=== PATIENT | male | born 1960 | race Caucasian/White ===

== ENCOUNTER 2016-03-19 01:39 | Emergency (ER) | payer SELFPAY ==
[2016-03-19] MEDS ORDERED: Ondansetron HCl/PF 4 MG/2 ML Vial ONE ×2 (01:55→02:13)
[2016-03-19] MEDS ORDERED: Sodium Chloride 0.9% 1,000 ML ONE ×2 (01:55→02:42)
[2016-03-19] MEDS ORDERED: Mag-Al Plus 1200 MG/1200 MG/120 MG/30 ML UDCUP ONE (02:03)
[2016-03-19] MEDS ORDERED: Lidocaine Viscous Sol 2% 15 ml UD Cup ONE (02:03)
[2016-03-19 02:06] LABS: Band 7 % (5-11); Hematocrit 45.3 % (42.0-52.0); Mean Platelet Volume 7.2 fL (7.4-10.4); Neutrophil 82 % (42-75); Red Blood Cell (RBC) Count 5.41 mill/uL (4.70-6.10); White Blood Cell (WBC) Count 21.9 thou/uL (4.8-10.8)
[2016-03-19 02:21] LABS: ALT (SGPT) 217 U/L (0-55); AST (SGOT) 209 U/L (5-34); Alkaline Phosphatase 301 U/L (40-150); Anion Gap 20 mmol/L (10-20); BUN (Urea Nitrogen) 13 mg/dL (8.4-25.7); Bilirubin, Total 1.8 mg/dL (0.2-1.2); Calc. Creatinine Clearance 0 mL/min (70-130); Calcium 9.3 mg/dL (7.8-10.44); Carbon Dioxide 19 mmol/L (22-29); Chloride 97 mmol/L (98-107); Estimated GFR-MDRD 70; Globulin 4.4 g/dL (2.4-3.5); Lipase 25 U/L (8-78); Protein, Total 7.9 g/dL (6.0-8.3)
[2016-03-19 02:24] LABS: Troponin I Less than 0.010 ng/mL (< 0.028)
[2016-03-19 02:26] LABS: pH (venous) 7.56 (7.34-7.37)
[2016-03-19 02:27] LABS: Base Excess 0.5 mEq/L (0 (+/- 2.5))
[2016-03-19 02:49] LABS: Lactic Acid - Sepsis 4.6 mmol/L (0.5-2.2)
[2016-03-19 03:00] LABS: Magnesium 1.7 mg/dL (1.6-2.6)
[2016-03-19 03:11] LABS: Phosphorus 1.1 mg/dL (2.3-4.7)
[2016-03-19] MEDS ORDERED: cefTRIAXone\\ROCEPHIN 1 GM VIAL ONE (03:16)
[2016-03-19] MEDS ORDERED: Sodium Chloride 0.9% 0 ML ONE (03:16)
[2016-03-19] MEDS ORDERED: Sodium Chloride 0.9% 100 ML ONE (03:16)
[2016-03-19] MEDS ORDERED: NS 0.9% w/ 20 MEQ KCL 1,000 ML ONE (03:38)
[2016-03-19] MEDS ORDERED: metroNIDAZOLE 500 MG/100 ML BAG ONE (04:13)
--- NOTE | 2016-03-19 04:32 | ERRECORD ---
[facility] EMERGENCY RECORD HPI ABDOMINAL PAIN (01:52 ALIM) CHIEF COMPLAINT: Patient presents for evaluation of abdominal pain. HISTORIAN: History provided by patient, 55 y/o male with no significant medical history, last seeing a doctor in the early when leaving the [employer], presenting with 5 hours of epigastric area, with n/v x 3. No fever, diarrhea, or constipation. No other recent illnesses. Last BM yesterday, normal. LOCATION MALE: Symptoms are localized, most severe in the epigastrium, no radiation. QUALITY: Pain is dull in nature. SEVERITY: Maximum severity of symptoms moderate, Currently symptoms are moderate. TIME COURSE: Gradual onset of symptoms, 6 hours. ASSOCIATED WITH: No associated constipation, No associated diarrhea, No associated fever, Associated with nausea, Associated with vomiting. RELIEVED BY: Patient's condition relieved by nothing. EXACERBATED BY: Patient's condition exacerbated by nothing. ROS (01:56 ALIM) CONSTITUTIONAL: Negative constitutional review of systems, Historian denies chills, denies fatigue, denies fever. EYES: Negative eye review of systems, Historian denies vision changes. ENT: Negative ears, nose, throat review of systems, Historian denies rhinorrhea, denies sore throat. CARDIOVASCULAR: Negative cardiovascular review of systems, Historian denies chest pain, denies palpitations. RESPIRATORY: Historian denies cough, denies shortness of breath, denies wheezing. GI: Historian reports abdominal pain, denies constipation, denies diarrhea, reports nausea, reports vomiting. GENITOURINARY MALE: Negative genitourinary review of systems, Historian denies dysuria. MUSCULOSKELETAL: Negative musculoskeletal review of systems, Historian denies injury. SKIN: Negative skin review of systems, Historian denies rash, denies skin changes, denies skin lesions. NEUROLOGIC: Negative neurologic review of systems, Historian denies dizziness, denies headache. PSYCHIATRIC: Negative psychiatric review of systems, Historian denies alcohol abuse, denies drug abuse. NOTES: All systems reviewed, negative except as described above. PAST MEDICAL HISTORY MEDICAL HISTORY: Flu vaccine not up to date, Tetanus not up to date, Past medical history includes gastrointestinal disease, gastroesophageal reflux disease. (01:45 KASA) &a-1R&a+25V*p+0X*[id number]*c202B*c15G*c2P*p-0X&a-25V&a+1R Name: Felix Maradiaga JR : 1960 M55 MedRec: [id number] AcctNum: [id number] Prepared: Balbina Mar 19, 2016 21:34 by Interface Page 1 of 4 pMD [facility] EMERGENCY RECORD MALE SURGICAL HISTORY: Surgical history of appendectomy, Notes: as a child, Surgical history of tonsillectomy, Notes: as a child. (01:45 KASA) PSYCHIATRIC HISTORY: No previous psychiatric history. (01:45 KASA) SOCIAL HISTORY: Patient drinks socially, rarely, Patient denies drug use, Patient currently uses tobacco, chews tobacco, daily, Patient has smoked for 30 years, Lives at home, alone, Patient has pets. (01:45 KASA) NOTES: Nursing records reviewed, Agree with nursing records, Medication list reviewed, I have reviewed and agree with nursing PMH, PSH, social history, and FH. (03:16 ALI) KNOWN ALLERGIES No Known Drug Allergies CURRENT MEDICATIONS (01:43 KASA) None VITAL SIGNS VITAL SIGNS: BP: 136/73, Pulse: 107, Resp: 22, Pain: 7, O2 sat: 100 on Room Air, Time: 03/19/2016 01:40. (01:40 KASA) Temp: 98.3 (Oral), Time: 03/19/2016 01:43. (01:43 KASA) BP: 138/69, Pulse: 101, Resp: 22, Pain: 3, O2 sat: 100, Time: 03/19/2016 02:30. (02:30 [facility]) BP: 133/73, Pulse: 107, Resp: 24, Temp: 99.8 (Oral), Pain: 3 (Intermittent), O2 sat: 96 on Room Air, Time: 03/19/2016 03:30. (03:30 KASA) BP: 147/85, Pulse: 105, Resp: 25, O2 sat: 97 on Room Air, Time: 03/19/2016 03:00. (03:00 KASA) BP: 125/76, Pulse: 108, Resp: 17, Pain: 3 (Intermittent), O2 sat: 97 on Room Air, Time: 03/19/2016 04:00. (04:00 KASA) PHYSICAL EXAM (01:57 ALIM) CONSTITUTIONAL: Vital Signs Reviewed, Patient afebrile, Pulse, tachycardic, Blood pressure normal, Respiratory rate normal, Patient appears non toxic, Patient appears, in moderate pain distress, Patient alert and oriented to person, place and time, Nursing notes reviewed. HEAD: Head exam normal, Head exam included findings of head atraumatic, normocephalic. EYES: Eye exam normal, Eye exam included findings of eyelids normal to inspection, Extraocular muscles intact. ENT: ENT exam normal, Ear exam normal, Nose exam normal. NECK: Neck exam normal, Neck exam included findings of normal range of motion, Trachea midline. RESPIRATORY CHEST: Respiratory and chest exam normal, Respiratory exam included findings of, no egophony, Breath sounds clear, No wheezing. CARDIOVASCULAR: Cardiovascular exam included findings &a-1R&a+25V*p+0X*z2508H*c202B*c15G*c2P*p-0X&a-25V&a+1R Name: Felix Maradiaga JR : 1960 M55 MedRec: [id number] AcctNum: [id number] Prepared: Balbina Mar 19, 2016 21:34 by Interface Page 2 of 4 pMD [facility] EMERGENCY RECORD of, rate tachycardic, Heart sounds normal. ABDOMEN MALE: Abdominal exam included findings of abdomen tender, periumbilical. BACK: Back exam normal, Back exam included findings of normal inspection, range of motion normal. UPPER EXTREMITY: Upper extremity exam normal, Upper extremity exam included findings of inspection normal, Range of motion normal. LOWER EXTREMITY: Lower extremity exam normal, Lower extremity exam included findings of inspection normal, Range of motion normal. NEURO: Neuro exam normal, [place] coma scale 15, Neuro exam findings include patient oriented to person, place and time, Speech normal. SKIN: Skin exam normal, Skin exam included findings of skin warm, dry, and normal in color. PSYCHIATRIC: Psychiatric exam normal, Psychiatric exam included findings of patient oriented to person place and time, Normal affect. EKG INTERPRETATION (01:56 ALIM) 12 LEAD EKG INTERPRETATION: 12 lead EKG interpreted by Emergency Department Physician at time of study, 12 lead EKG shows normal sinus rhythm, Conduction normal, ST segments normal, T waves normal, [place] normal, Other findings include:, prolonged QTc. MEDICATION ADMINISTRATION SUMMARY Drug Name: Flagyl (as HCl), Dose Ordered: 500 mg, Route: IV Piggy Back, Status: Given, Time: 04:22 03/19/2016, Drug Name: potassium chloride in 0.9%NaCl, Dose Ordered: 250 mL/hr, Route: IV Fluid Infusion, Status: Given, Time: 03:44 03/19/2016, Drug Name: cefTRIAXone intravenous, Dose Ordered: 1 g, Route: IV Piggy Back, Status: Given, Time: 03:20 03/19/2016, Drug Name: sodium chloride 0.9 % intravenous, Dose Ordered: 1000 mL, Route: IV Fluid Infusion, Status: Given, Time: 02:55 03/19/2016, Drug Name: Zofran intravenous, Dose Ordered: 4 mg, Route: IV Push, Status: Given, Time: 02:21 03/19/2016, Drug Name: morphine injection, Dose Ordered: 4 mg, Route: IV Push, Status: Given, Time: 02:19 03/19/2016, Drug Name: GI COCKTAIL - WHITE, Dose Ordered: 40 mL, Route: Oral, Status: Given, Time: 02:10 03/19/2016, Drug Name: Zofran intravenous, Dose Ordered: 4 mg, Route: IV Push, Status: Given, Time: 02:04 03/19/2016, Drug Name: sodium chloride 0.9 % intravenous, Dose Ordered: 1000 mL, Route: IV Fluid Infusion, Status: Given, Time: 02:00 03/19/2016, Detailed record available in Medication Service section. DOCTOR NOTES RE-EVALUATION: 55 y/o male with no significant pmh due to not seeking medical care, presenting with epigastric pain and n/v. Findings are significant for hyperglycemia, ketosis, several electrolyte abnormalities without gap (14), alkalosis (7.56), &a-1R&a+25V*p+0X*k2543S*c202B*c15G*c2P*p-0X&a-25V&a+1R Name: Felix Maradiaga JR : 1960 M55 MedRec: [id number] AcctNum: [id number] Prepared: Balbina Mar 19, 2016 21:34 by Interface Page 3 of 4 pMD [facility] EMERGENCY RECORD hypophosphatemia, leukocytosis, abnormal LFTs. Unable to run serum osmolality, no US available for bedside US. Cultures taken for severe sepsis criteria. 2L IV fluids, recheck glucose, iv insulin 0.1 unit/kg, then NS with 20 mEq KCL. No KPhos available to replete phos level. Awaiting CT a/p results to initiate transfer. (03:16 ALIM) CT a/p returned with reading of acute cholecystitis. Will initiate transfer to [facility] for this complex patient. (03:39 ALIM) Transfer accepted by Dr. Reich. (03:49 ALIM) CRITICAL CARE: Time spent providing critical care to patient was 30-74 minutes, 35 minutes. (03:20 ALIM) PROBLEM LIST No recorded problems DIAGNOSIS (03:39 ALIM) FINAL: PRIMARY: ACUTE CHOLECYSTITIS, ADDITIONAL: Abdominal Pain, Abnormal LFTs, Elevated lactic acid level, Hyperglycemia, Hypophosphatemia, Ketosis, Nausea with vomiting, Respiratory alkalosis, Sepsis, Severe volume depletion. PRESCRIPTION No recorded prescriptions DISPOSITION PATIENT: Disposition Type: Transfer, Disposition: Transfer to [facility]. (03:50 ALIM) Patient left the department. (04:25 BERNARD) Oquendo: MEAGHAN=MD Arnaldo, Obed WAGNER=EDI Guadalupe, Dalila [facility]=EDI Will, Marychuy &a-1R&a+25V*p+0X*p4889O*c202B*c15G*c2P*p-0X&a-25V&a+1R Name: Felix Maradiaga JR : 1960 M55 MedRec: [id number] AcctNum: [id number] Prepared: Balbina Mar 19, 2016 21:34 by Interface Page 4 of 4 pMD MTDD
--- NOTE | 2016-03-19 04:37 | PICIS ---
[facility] EMERGENCY RECORD TRIAGE (:42 KASA) TRIAGE NOTES: Vomited numerous times since 9 pm. (:42 KASA) PATIENT: NAME: Felix Maradiaga JR, AGE: 55, GENDER: male, : Fri1960, TIME OF GREET: FriMar 19, 2016 01:40, ECODE BILLING MAP: [facility], Zip Code: [address], KG WEIGHT: 85.73, , , PERSON ID: [id number], PCP: None. (:42 KASA) PHONE: . (02:42) COMPLAINT: Nausea and Vomiting. (:42 KASA) ADMISSION: URGENCY: 4 Non Urgent, ADMISSION SOURCE: Home, TRANSPORT: CAR, BED: ER -03. (:42 KASA) SIRS SCORING: Heart Rate 55-109 (0), Temp range 96.8-101.1 (0), respiratory rate 12-24 (0), Mental Status altered: no (0). (01:45 KASA) TRIAGE SCREENING: Patient denies suicidal ideation, Patient denies presence of domestic violence. (01:45 KASA) PROVIDERS: TRIAGE NURSE: Dalila Guadalupe RN. (:42 KASA) VITAL SIGNS: BP 136/73, Pulse 107, Resp 22, Pain 7, O2 Sat 100, on Room Air, Time 03/19/2016 01:40. (01:40 KASA) Temp 98.3, (Oral), Time 03/19/2016 01:43. (:43 KASA) KNOWN ALLERGIES No Known Drug Allergies CURRENT MEDICATIONS (:43 KASA) None VITAL SIGNS VITAL SIGNS: BP: 136/73, Pulse: 107, Resp: 22, Pain: 7, O2 sat: 100 on Room Air, Time: 03/19/2016 01:40. (01:40 KASA) Temp: 98.3 (Oral), Time: 03/19/2016 01:43. (01:43 KASA) BP: 138/69, Pulse: 101, Resp: 22, Pain: 3, O2 sat: 100, Time: 03/19/2016 02:30. (02:30 [facility]) BP: 133/73, Pulse: 107, Resp: 24, Temp: 99.8 (Oral), Pain: 3 (Intermittent), O2 sat: 96 on Room Air, Time: 03/19/2016 03:30. (03:30 KAS[facility]) BP: 147/85, Pulse: 105, Resp: 25, O2 sat: 97 on Room Air, Time: 03/19/2016 03:00. (03:00 KASA) BP: 125/76, Pulse: 108, Resp: 17, Pain: 3 (Intermittent), O2 sat: 97 on Room Air, Time: 03/19/2016 04:00. (04:00 KASA) NURSING ASSESSMENT: ABDOMEN (:46 KASA) PAIN: aching pain, Midline abdominal, Onset of pain 03/18/2016, constant, on a scale 0-10 patient rates pain as 7. ABDOMEN: Abdomen assessment findings include abdomen symmetrical, Abdomen soft, Associated with nausea, Associated with vomiting, history of vomiting, Number of times: Too many to count, no associated diarrhea, no associated &a-1R&a+25V*p+0X*k4798B*c202B*c15G*c2P*p-0X&a-25V&a+1R Name: Felix Maradiaga : 1960 M55 MedRec: [id number] AcctNum: [id number] Prepared: Balbina Mar 19, 2016 21:40 by Interface Page 1 of 19 pMD [facility] EMERGENCY RECORD constipation, Date of last bowel movement: 03/18/16. SAFETY: Side rails up, Cart/Stretcher in lowest position, Call light within reach, Hospital ID band on. NURSING ASSESSMENT: FALL RISK (02:41 KASA) FALL RISK: Use of level of consciousness altering agents with mentation or cognitive changes (3), Impaired mobility (3), Total score 6, Fall risk. NURSING ASSESSMENT: SKIN (03:30 KASA) SKIN: Skin assessment findings include skin warm, Skin dry, Skin normal in color, Inspection findings include: No pressure ulcer to the shoulder, Inspection findings include no pressure ulcer to the elbow, Inspection findings include no pressure ulcers to the hip, Inspection findings include no pressure ulcer to the sacrum, Inspection findings include no pressure ulcer to the heel, Inspection findings include no pressure ulcer, Inspection findings include no pressure ulcer. SAFETY: Side rails up, Cart/Stretcher in lowest position, Call light within reach, Hospital ID band on. NURSING PROCEDURE: BEDSIDE RADIOLOGY (02:19 [facility]) PATIENT IDENTIFIER: Patient actively involved in identification process, Patient's identity verified by patient stating name, Patient's identity verified by patient stating date. BEDSIDE RADIOLOGY: Bedside radiology performed by ESTEVAN, Portable chest x-ray performed. SAFETY: Side rails up, Cart/Stretcher in lowest position, Call light within reach, Hospital ID band on. NURSING PROCEDURE: BEDSIDE SIRS TESTING (02:31 [facility]) SCORES: Heart Rate 55-109 (0), Temp range 96.8-101.1 (0), respiratory rate 12-24 (0), Latest WBC 20-39.9 (2), Mental Status altered: no (0), Total SIRS Score 2. NURSING PROCEDURE: BEDSIDE TESTING (03:05 [facility]) GLUCOSE: Glucose testing indicated for hyperglycemia, Venous blood sample, Result (mg/dl) 397. NURSING PROCEDURE: COMMUNICATIONS COMMUNICATIONS: Critical lab value, received at 02:26, received from ELIZABETH (TAX STAFF ACCOUNTANT), Critical lab result: pH- 7.56, given to EDI PATINO, results read back and verified, REPORTED TO MD ARNALDO. (02:26 [facility]) Critical lab value, received at 0248, received from ELIZABETH, Critical lab result: LACTIC ACID 4.6, given to EDI BUSTOS, results read back and verified, ERMD PRESENT AND AWARE OF VALUE. (02:48 [facility]) Critical lab value, received at 0310, received from ELIZABETH, Critical lab result: PHOSPORUS 1.1, given to EDI BUSTOS, results read &a-1R&a+25V*p+0X*t8001C*c202B*c15G*c2P*p-0X&a-25V&a+1R Name: Felix Maradiaga JR : 1960 M55 MedRec: [id number] AcctNum: [id number] Prepared: FriMar 19, 2016 21:40 by Interface Page 2 of 19 pMD [facility] EMERGENCY RECORD back and verified, ERMD AT NURSES STATION AND AWARE OF RESULT. (03:10 [facility]) NURSING PROCEDURE: EKG CHART (:53 [facility]) PATIENT IDENTIFIER: Patient actively involved in identification process, Patient's identity verified by patient stating name, Patient's identity verified by patient stating date, Patient's identity verified by hospital ID bracelet. EK lead EKG performed on the left chest, done by EDI BUSTOS, first EKG. NURSING PROCEDURE: IV PATIENT IDENITIFIER: Patient actively involved in identification process, Patient's identity verified by patient stating name, Patient's identity verified by patient stating date, Patient's identity verified by hospital ID bracelet. (:55 [facility]) IV SITE 1: IV established, to the right antecubital, using an 18 gauge catheter, in two attempts, IV site prepped with Chloroprep, Saline lock established, Flushed with normal saline (mls): 10mLs, Labs drawn at time of placement, labeled in the presence of the patient and sent to lab, Notes: IV site C/D/I. no pain, redness, or swelling. IV start kit/extension tubing used. (:55 [facility]) IV SITE 2: IV therapy indicated for hydration, IV therapy indicated for medication administration, IV established, to the left hand, using a 20 gauge catheter, in one attempt, IV site prepped with chloroprep, Saline lock established, Flushed with normal saline (mls): 10, Blood cultures drawn at time of placement, labeled in the presence of the patient and sent to lab, Notes: IV site C/D/I. no pain, redness, or swelling. IV start kit/extension tubing used. (03:10 [facility]) SAFETY: Side rails up, Cart/Stretcher in lowest position, Call light within reach, Hospital ID band on. (:55 [facility]) NURSING PROCEDURE: NURSE NOTES (04:39 KASA) NURSES NOTES: Notes: EDI DUGAN NOTIFIED THAT PATIENT'S BELONGINGS WERE NOT TRANSFERRED WITH HIM. WE HAVE THEM HERE WITH PATIENT STICKERS. 2 BAGS AT NURSE'S STATION. NURSING PROCEDURE: TRANSFER (04:07 KASA) TRANSFER: Reason for transfer need for specialized care, Diagnosis: SEPSIS, CHOLECYSTITIS, Accepting institution: [facility], Accepting physician: STACEY, Referring physician: ARNALDO, Transported by non-urgent ambulance, accompanied by emergency medical services personnel, Report called to receiving facility, EDI DUGAN, Provided opportunity to answer questions, Bed assigned ER to ER, Summary of Care printed, Copy of patient record prepared for receiving facility, Copy of diagnostic studies, Status of patient's valuables documented on chart, Medication reconciliation form prepared and sent to receiving facility, Patient consent for transfer signed, Patient given appropriate sedation for safe transport. &a-1R&a+25V*p+0X*e1875H*c202B*c15G*c2P*p-0X&a-25V&a+1R Name: Felix Maradiaga JR : 1960 M55 MedRec: [id number] AcctNum: [id number] Prepared: Balbina Mar 19, 2016 21:40 by Interface Page 3 of 19 pMD [facility] EMERGENCY RECORD BELONGINGS: Belongings and valuables with patient upon arrival to the Emergency Department include:, Belongings and valuables with patient at time of discharge include:, belt, jacket, pants, shirt, shoes, socks, cellular phone, eye glasses, keys, other items:, Description TAPE MEASURE, POCKET KNIFE, BOOK, Belongings remain with patient, Valuables remain with patient, Notes: SMALL ITEMS IN HIS SHOE, SHOES IN SEPARATE BAG FROM CLOTHING. EQUIPMENT WITH PATIENT: Equipment with patient at time of transfer clinical research director, Saline lock intact and patent at time of transfer. SAFETY: Side rails up, Cart/Stretcher in lowest position, Call light within reach, Hospital ID band on. NURSING PROCEDURE: TRANSPORT TO TESTS PATIENT IDENTIFIER: Patient actively involved in identification process, Patient's identity verified by patient stating name, Patient's identity verified by patient stating date. (02:38 KASA) TRANSPORT TO TESTS: Transport indicated to facilitate diagnosis, Patient transported to CT scan, via cart, Accompanied by x-ray field service technician poultry. (02:38 KASA) FOLLOW-UP: After procedure, patient returned to emergency department. (02:45 KASA) SAFETY: Side rails up, Cart/Stretcher in lowest position, Call light within reach, Hospital ID band on. (02:38 KASA) ORDER DETAILS Order Name: Alcohol, Status: Active, Time: 02:27 03/19/2016, User: MEAGHAN, - Ordered for: MD Mcintosh Arthur, - Entered by: MD Mcintosh Arthur - FriMar 19, 2016 02:27, - Quantity: 1, Order Name: Beta-Hydroxybutyrate (Ketone), Status: Active, Time: 02:39 03/19/2016, User: MEAGHAN, - Ordered for: MD Mcintosh Arthur, - Entered by: MD Mcintosh Arthur - FriMar 19, 2016 02:39, - Quantity: 1, Order Name: Cardiac Profile w/CKMB & Troponin - I, Status: Active, Time: 01:50 03/19/2016, User: MEAGHAN, - Ordered for: MD Mcintosh Arthur, - Entered by: MD Mcintosh Arthur - FriMar 19, 2016 01:50, - Quantity: 1, Order Name: CBC with Differential, Status: Active, Time: 01:50 03/19/2016, User: MEAGHAN, - Ordered for: MD Mcintosh Arthur, - Entered by: MD Mcintosh Arthur - FriMar 19, 2016 01:50, - Quantity: 1, Order Name: CK (CPK), Status: Active, Time: 02:38 03/19/2016, User: MEAGHAN, &a-1R&a+25V*p+0X*q4000C*c202B*c15G*c2P*p-0X&a-25V&a+1R Name: Felix Maradiaga JR : 1960 M55 MedRec: [id number] AcctNum: [id number] Prepared: FriMar 19, 2016 21:40 by Interface Page 4 of 19 D [facility] EMERGENCY RECORD - Ordered for: MD Mcintosh Arthur, - Entered by: MD Mcintosh Arthur - FriMar 19, 2016 02:38, - Quantity: 1, Order Name: Comprehensive Metabolic Panel, Status: Active, Time: 01:50 03/19/2016, User: MEAGHAN, - Ordered for: MD Mcintosh Arthur, - Entered by: MD Mcintosh Arthur - FriMar 19, 2016 01:50, - Quantity: 1, Order Name: CT Abdomen Pelvis W Con, Status: Active, Time: 01:50 03/19/2016, User: MEAGHAN, - Ordered for: MD Mcintosh Arthur, - Entered by: MD Mcintosh Arthur - FriMar 19, 2016 01:50, - Quantity: 1, Order Name: Culture, Blood, Status: Active, Time: 02:38 03/19/2016, User: MEAGHAN, - Ordered for: MD Mcintosh Arthur, - Entered by: MD Mcintosh Arthur - rajinder Mar 19, 2016 02:38, - Quantity: 1, Order Name: Culture, Urine, Status: Active, Time: 02:38 03/19/2016, User: MEAGHAN, - Ordered for: MD Mcintosh Arthur, - Entered by: MD Mcintosh Arthur - rajinder Mar 19, 2016 02:38, - Quantity: 1, Order Name: Diet: Nothing by Mouth (NPO), Status: Done, Time: 04:00 03/19/2016, User: BERNARD, - Ordered for: MD Mcintosh Arthur, - Entered by: MD Mcintosh Arthur - FriMar 19, 2016 03:51, - Quantity: 1, Order Name: Drug Screen, Urine, Status: Active, Time: 01:50 03/19/2016, User: MEAGHAN, - Ordered for: MD Mcintosh Arthur, - Entered by: MD Mcintosh Arthur - FriMar 19, 2016 01:50, - Quantity: 1, Order Name: EKG 12 Lead in Emergency Room, Status: Active, Time: 01:50 03/19/2016, User: MEAGHAN, - Ordered for: MD Mcintosh Arthur, - Entered by: MD Mcintosh Arthur - FriMar 19, 2016 01:50, - Quantity: 1, Order Name: Lactic Acid with repeat, Status: Active, Time: 02:11 03/19/2016, User: MEAGHAN, - Ordered for: MD Mcintosh Arthur, - Entered by: MD Mcintosh Arthur - FriMar 19, 2016 02:11, - Quantity: 1, Order Name: Lipase, Status: Active, Time: 01:50 03/19/2016, User: MEAGHAN, - Ordered for: MD Mcintosh Arthur, - Entered by: MD Mcintosh Arthur - rajinder Mar 19, 2016 01:50, - Quantity: 1, Order Name: Magnesium, Status: Active, Time: 02:38 03/19/2016, User: MEAGHAN, &a-1R&a+25V*p+0X*r9847M*c202B*c15G*c2P*p-0X&a-25V&a+1R Name: Felix Maradiaga JR : 1960 M55 MedRec: [id number] AcctNum: [id number] Prepared: FriMar 19, 2016 21:40 by Interface Page 5 of 19 pMD [facility] EMERGENCY RECORD - Ordered for: MD Mcintosh Arthur, - Entered by: MD Mcintosh Arthur - FriMar 19, 2016 02:38, - Quantity: 1, Order Name: Phosphorus, Status: Active, Time: 02:40 03/19/2016, User: MEAGHAN, - Ordered for: MD Mcintosh Arthur, - Entered by: MD Mcintosh Arthur - FriMar 19, 2016 02:40, - Quantity: 1, Order Name: SALINE LOCK, Status: Done, Time: 02:01 03/19/2016, User: JENNI, - Ordered for: MD Mcintosh Arthur, - Entered by: MD Mcintosh Arthur - FriMar 19, 2016 01:50, - Quantity: 1, Order Name: Urinalysis with Microscopic, Status: Active, Time: 01:50 03/19/2016, User: MEAGHAN, - Ordered for: MD Mcintosh Arthur, - Entered by: MD Mcintosh Arthur - FriMar 19, 2016 01:50, - Quantity: 1, Order Name: VBG (For BUR,MAD, and BERNARDO), Status: Active, Time: 02:12 03/19/2016, User: MEAGHAN, - Ordered for: MD Mcintosh Arthur, - Entered by: MD Mcintosh Arthur - FriMar 19, 2016 02:12, - Quantity: 1, Order Name: XR Chest 1 View Portable, Status: Active, Time: 01:50 03/19/2016, User: MEAGHAN, - Ordered for: MD Mcintosh Arthur, - Entered by: MD Mcintosh Arthur - FriMar 19, 2016 01:50, - Quantity: 1. MEDICATION ADMINISTRATION SUMMARY Drug Name: Flagyl (as HCl), Dose Ordered: 500 mg, Route: IV Piggy Back, Status: Given, Time: 04:22 03/19/2016, Drug Name: potassium chloride in 0.9%NaCl, Dose Ordered: 250 mL/hr, Route: IV Fluid Infusion, Status: Given, Time: 03:44 03/19/2016, Drug Name: cefTRIAXone intravenous, Dose Ordered: 1 g, Route: IV Piggy Back, Status: Given, Time: 03:20 03/19/2016, Drug Name: sodium chloride 0.9 % intravenous, Dose Ordered: 1000 mL, Route: IV Fluid Infusion, Status: Given, Time: 02:55 03/19/2016, Drug Name: Zofran intravenous, Dose Ordered: 4 mg, Route: IV Push, Status: Given, Time: 02:21 03/19/2016, Drug Name: morphine injection, Dose Ordered: 4 mg, Route: IV Push, Status: Given, Time: 02:19 03/19/2016, Drug Name: GI COCKTAIL - WHITE, Dose Ordered: 40 mL, Route: Oral, Status: Given, Time: 02:10 03/19/2016, Drug Name: Zofran intravenous, Dose Ordered: 4 mg, Route: IV Push, Status: Given, Time: 02:04 03/19/2016, Drug Name: sodium chloride 0.9 % intravenous, Dose Ordered: 1000 mL, Route: IV Fluid Infusion, Status: Given, Time: 02:00 03/19/2016, Detailed record available in Medication Service section. &a-1R&a+25V*p+0X*t6067C*c202B*c15G*c2P*p-0X&a-25V&a+1R Name: Felix Maradiaga JR : 1960 M55 MedRec: [id number] AcctNum: [id number] Prepared: FriMar 19, 2016 21:40 by Interface Page 6 of 19 pMD [facility] EMERGENCY RECORD MEDICATION SERVICE cefTRIAXone intravenous: Order: cefTRIAXone intravenous (ceftriaxone sodium) - Dose: 1 g : IV Piggy Back Schedule: Now Ordered by: Obed Mcintosh MD Entered by: Obed Mcintosh MD FriMar 19, 2016 03:08 , Acknowledged by: Dalila Guadalupe RN FriMar 19, 2016 03:32 Documented as given by: Dalila Guadalupe RN FriMar 19, 2016 03:20 Patient, Medication, Dose, Route and Time verified prior to administration. Amount given: 1 G, IV SITE #1 IVPB or drip, initial infusion, IVPB mixed in: 100ml, Fluid: 0.9NS, via primary tubing, via pump tubing, at 200 ml/hr, Catheter placement confirmed via flush prior to administration, IV site without signs or symptoms of infiltration during medication administration, No swelling during administration, No drainage during administration, IV flushed after administration, Correct patient, time, route, dose and medication confirmed prior to administration, Patient advised of actions and side-effects prior to administration, Allergies confirmed and medications reviewed prior to administration, Patient in position of comfort, Side rails up, Cart in lowest position. : Follow Up : No signs or symptoms of allergic reaction noted, _IV SITE #1:_, Medication infusion discontinued, on FriMar 19, 2016 03:56, 40 minutes, ., Total amount infused: 100 ml, IV Line flushed after administration, Advised not to ambulate without assistance, Patient in position of comfort, Side rails up, Cart in lowest position. (03:56 [facility]) Flagyl (as HCl): Order: Flagyl (as HCl) (metronidazole HCl) - Dose: 500 mg : IV Piggy Back Schedule: Now Ordered by: Obed Mcintosh MD Entered by: Obed Mcintosh MD FriMar 19, 2016 04:07 Documented as given by: Marychuy Will RN FriMar 19, 2016 04:22 Patient, Medication, Dose, Route and Time verified prior to administration. IV SITE #1 IVPB or drip, concurrent infusion, Premixed, via primary tubing, via pump tubing, on an IV pump, Awake and alert- acceptable, Catheter placement confirmed via flush prior to administration, IV site without signs or symptoms of infiltration during medication administration, No swelling during administration, No drainage during administration, IV flushed after administration, Correct patient, time, route, dose and medication confirmed prior to administration, Patient advised of actions and side-effects prior to administration, Allergies confirmed and medications reviewed prior to administration. : Follow Up : _IV SITE #1:_, Medication infusion continued upon transfer from emergency department, on FriMar 19, 2016 04:23, 5 minutes, . (04:23 [facility]) GI COCKTAIL - WHITE: Order: GI COCKTAIL - WHITE - Dose: 40 mL : Oral &a-1R&a+25V*p+0X*k2154H*c202B*c15G*c2P*p-0X&a-25V&a+1R Name: Felix Maradiaga JR : 1960 M55 MedRec: [id number] AcctNum: [id number] Prepared: FriMar 19, 2016 21:40 by Interface Page 7 of 19 pMD [facility] EMERGENCY RECORD Lidocaine Viscous (lidocaine HCl) [10 mL] MAG-AL (magnesium hydroxide/aluminum hydroxide) [30 mL] Schedule: Now Ordered by: Obed Mcintosh MD Entered by: Obed Mcintosh MD FriMar 19, 2016 02:01 , Acknowledged by: Marychuy Will RN FriMar 19, 2016 02:05 Documented as given by: Dalila Guadalupe RN FriMar 19, 2016 02:10 Patient, Medication, Dose, Route and Time verified prior to administration. Amount given: 40 ml, Site: Medication administered P.O., Correct patient, time, route, dose and medication confirmed prior to administration, Patient advised of actions and side-effects prior to administration, Allergies confirmed and medications reviewed prior to administration, Patient in position of comfort, Side rails up, Cart in lowest position, Co-signed by: Obed Mcintosh MD FriMar 19, 2016 02:17. : Follow Up : Increased vomiting, No change in nausea, Advised not to ambulate without assistance, Patient in position of comfort, Side rails up, Cart in lowest position, Patient vomited not long after getting it down. ERMD aware and ordered additional dose of Zofran. (02:21 [facility]) morphine injection: Order: morphine injection (morphine sulfate) - Dose: 4 mg : IV Push Schedule: Now Ordered by: Obed Mcintosh MD Entered by: Obed Mcintosh MD FriMar 19, 2016 01:51 , Acknowledged by: Dalila Guadalupe RN FriMar 19, 2016 02:00, Held by: Marychuy Will RN FriMar 19, 2016 02:05 Reason: PT HAS NO RIDE. ALSO ORDERED TO HOLD, AND TRY GI COCKTAIL FIRST. Documented as given by: Dalila Guadalupe RN rajinder Mar 19, 2016 02:19 Patient, Medication, Dose, Route and Time verified prior to administration. Amount given: 4 mg, IV SITE #1 IVP, initial medication, Slowly, Catheter placement confirmed via flush prior to administration, IV site without signs or symptoms of infiltration during medication administration, No swelling during administration, No drainage during administration, IV flushed after administration, Correct patient, time, route, dose and medication confirmed prior to administration, Patient advised of actions and side-effects prior to administration, Allergies confirmed and medications reviewed prior to administration, Patient in position of comfort, Side rails up, Cart in lowest position. : Follow Up : Decreased pain, _IV SITE #1:_, Advised not to ambulate without assistance, Patient in position of comfort, Side rails up, Cart in lowest position, Patient down from 09/16 to 06/17. (03:57 KASA) potassium chloride in 0.9%NaCl: Order: potassium chloride in 0.9%NaCl (potassium chloride/0.9 % sodium chloride) - Dose: 250 mL/hr : IV Fluid Infusion Schedule: Now &a-1R&a+25V*p+0X*s4045E*c202B*c15G*c2P*p-0X&a-25V&a+1R Name: Felix Maradiaga JR : 1960 M55 MedRec: [id number] AcctNum: [id number] Prepared: FriMar 19, 2016 21:40 by Interface Page 8 of 19 pMD [facility] EMERGENCY RECORD Ordered by: Obed Mcintosh MD Entered by: Obed Mcintosh MD FriMar 19, 2016 03:25 , Acknowledged by: Dalila Guadalupe RN rajinder Mar 19, 2016 03:36 Documented as given by: Dalila Guadalupe RN FriMar 19, 2016 03:44 Patient, Medication, Dose, Route and Time verified prior to administration. Amount given: 1000 ml, IV SITE #2, IV fluids established for hydration, into left hand, 1st bag hung, amount 1 Liter hung, Rate of infusion (non-bolus) Infusing at 250 ml/hr, Rate change Infusing at 250 ml/hr, via primary tubing, via pump tubing, on IV pump, Catheter placement confirmed via flush prior to administration, IV site without signs or symptoms of infiltration during medication administration, No swelling during administration, No drainage during administration, IV flushed after administration, Correct patient, time, route, dose and medication confirmed prior to administration, Patient advised of actions and side-effects prior to administration, Allergies confirmed and medications reviewed prior to administration, Patient in position of comfort, Side rails up, Cart in lowest position. : Follow Up : No signs or symptoms of allergic reaction noted, Site inspection shows, No swelling at administration site, No drainage at administration site, No bleeding at site, No bruising noted at site, _IV SITE #2:_, Medication infusion continued upon transfer from emergency department, on FriMar 19, 2016 04:23, 40 minutes, ., Total amount infused: 143 ML, Advised not to ambulate without assistance, Patient in position of comfort, Side rails up, Cart in lowest position. (04:23 [facility]) sodium chloride 0.9 % intravenous: Order: sodium chloride 0.9 % intravenous (0.9 % sodium chloride) - Dose: 1000 mL : IV Fluid Infusion Schedule: Now Ordered by: Obed Mcintosh MD Entered by: Obed Mcintosh MD FriMar 19, 2016 01:51 , Acknowledged by: Dalila Guadalupe RN FriMar 19, 2016 02:00 Documented as given by: Dalila Guadalupe RN FriMar 19, 2016 02:00 Patient, Medication, Dose, Route and Time verified prior to administration. Amount given: 1000 ml, IV SITE #1 IV fluids established for hydration, IV SITE #1 into right antecubital, IV SITE #1 1st bag hung, amount 1 Liter hung, IV SITE #1 bolus of 1000 ml established, via primary tubing, via pump tubing, Catheter placement confirmed via flush prior to administration, IV site without signs or symptoms of infiltration during medication administration, No swelling during administration, No drainage during administration, IV flushed after administration, Correct patient, time, route, dose and medication confirmed prior to administration, Patient advised of actions and side-effects prior to administration, Allergies confirmed and medications reviewed prior to administration, Patient in position of comfort, Side rails up, Cart in lowest position. : Follow Up : No signs or symptoms of allergic reaction noted, &a-1R&a+25V*p+0X*r8041U*c202B*c15G*c2P*p-0X&a-25V&a+1R Name: Felix Maradiaga JR : 1960 M55 MedRec: [id number] AcctNum: [id number] Prepared: FriMar 19, 2016 21:40 by Interface Page 9 of 19 pMD [facility] EMERGENCY RECORD _IV SITE #1:_, IV fluid infusion discontinued, on FriMar 19, 2016 02:38, 40 minutes, ., Total amount infused: 1000 ml, Advised not to ambulate without assistance, Patient in position of comfort, Side rails up, Cart in lowest position, Family at bedside. (02:38 KASA) sodium chloride 0.9 % intravenous: Order: sodium chloride 0.9 % intravenous (0.9 % sodium chloride) - Dose: 1000 mL : IV Fluid Infusion Schedule: Now Ordered by: Obed Mcintosh MD Entered by: Obed Mcintosh MD FriMar 19, 2016 02:40 , Acknowledged by: Dalila Guadalupe RN FriMar 19, 2016 02:46 Documented as given by: Dalila Guadalupe RN FriMar 19, 2016 02:55 Patient, Medication, Dose, Route and Time verified prior to administration. Amount given: 1000 ml, IV SITE #1 IV fluids established for hydration, IV SITE #1 into right antecubital, IV SITE #1 2nd bag hung, amount 1 Liter hung, IV SITE #1 bolus of 1000 ml established, via primary tubing, via pump tubing, Catheter placement confirmed via flush prior to administration, IV site without signs or symptoms of infiltration during medication administration, No swelling during administration, No drainage during administration, IV flushed after administration, Correct patient, time, route, dose and medication confirmed prior to administration, Patient advised of actions and side-effects prior to administration, Allergies confirmed and medications reviewed prior to administration, Patient in position of comfort, Side rails up, Cart in lowest position. : Follow Up : No signs or symptoms of allergic reaction noted, _IV SITE #1:_, IV fluid infusion discontinued, on FriMar 19, 2016 03:20, 25 minutes, ., Total amount infused: 1000 ML, Advised not to ambulate without assistance, Patient in position of comfort, Side rails up, Cart in lowest position, Family at bedside. (03:30 KASA) Zofran intravenous: Order: Zofran intravenous (ondansetron HCl) - Dose: 4 mg : IV Push Schedule: Now Ordered by: Obed Mcintosh MD Entered by: Obed Mcintosh MD FriMar 19, 2016 01:51 , Acknowledged by: Dalila Guadalupe RN FriMar 19, 2016 02:00 Documented as given by: Dalila Guadalupe RN FriMar 19, 2016 02:04 Patient, Medication, Dose, Route and Time verified prior to administration. Amount given: 4 mg, IV SITE #1 IVP, initial medication, Slowly, Catheter placement confirmed via flush prior to administration, IV site without signs or symptoms of infiltration during medication administration, No swelling during administration, No drainage during administration, IV flushed after administration, Correct patient, time, route, dose and medication confirmed prior to administration, Patient advised of actions and side-effects prior to administration, Allergies confirmed and medications reviewed prior to administration, &a-1R&a+25V*p+0X*[id number]*c202B*c15G*c2P*p-0X&a-25V&a+1R Name: Felix Maradiaga JR : 1960 M55 MedRec: [id number] AcctNum: [id number] Prepared: FriMar 19, 2016 21:40 by Interface Page 10 of 19 D [facility] EMERGENCY RECORD Patient in position of comfort, Side rails up, Cart in lowest position. Zofran intravenous: Order: Zofran intravenous (ondansetron HCl) - Dose: 4 mg : IV Push Schedule: Now Ordered by: Obed Mcintosh MD Entered by: Obed Mcintosh MD FriMar 19, 2016 02:16 , Acknowledged by: Dalila Guadalupe RN FriMar 19, 2016 02:21 Documented as given by: Dalila Guadalupe RN FriMar 19, 2016 02:21 Patient, Medication, Dose, Route and Time verified prior to administration. Amount given: 4 MG, IV SITE #1 IVP, subsequent different medication, Slowly, Catheter placement confirmed via flush prior to administration, IV site without signs or symptoms of infiltration during medication administration, No swelling during administration, No drainage during administration, IV flushed after administration, Correct patient, time, route, dose and medication confirmed prior to administration, Patient advised of actions and side-effects prior to administration, Allergies confirmed and medications reviewed prior to administration, Patient in position of comfort, Side rails up, Cart in lowest position. HPI ABDOMINAL PAIN (01:52 ALIM) CHIEF COMPLAINT: Patient presents for evaluation of abdominal pain. HISTORIAN: History provided by patient, 55 y/o male with no significant medical history, last seeing a doctor in the early when leaving the [employer], presenting with 5 hours of epigastric area, with n/v x 3. No fever, diarrhea, or constipation. No other recent illnesses. Last BM yesterday, normal. LOCATION MALE: Symptoms are localized, most severe in the epigastrium, no radiation. QUALITY: Pain is dull in nature. SEVERITY: Maximum severity of symptoms moderate, Currently symptoms are moderate. TIME COURSE: Gradual onset of symptoms, 6 hours. ASSOCIATED WITH: No associated constipation, No associated diarrhea, No associated fever, Associated with nausea, Associated with vomiting. RELIEVED BY: Patient's condition relieved by nothing. EXACERBATED BY: Patient's condition exacerbated by nothing. ROS (01:56 ALIM) CONSTITUTIONAL: Negative constitutional review of systems, Historian denies chills, denies fatigue, denies fever. EYES: Negative eye review of systems, Historian denies vision changes. ENT: Negative ears, nose, throat review of systems, Historian denies rhinorrhea, denies sore throat. CARDIOVASCULAR: Negative cardiovascular review of systems, Historian denies chest pain, denies palpitations. &a-1R&a+25V*p+0X*d7489S*c202B*c15G*c2P*p-0X&a-25V&a+1R Name: Felix Maradiaga JR : 1960 M55 MedRec: [id number] AcctNum: [id number] Prepared: [place] Mar 19, 2016 21:40 by Interface Page 11 of 19 pMD [facility]GENCY RECORD RESPIRATORY: Historian denies cough, denies shortness of breath, denies wheezing. GI: Historian reports abdominal pain, denies constipation, denies diarrhea, reports nausea, reports vomiting. GENITOURINARY MALE: Negative genitourinary review of systems, Historian denies dysuria. MUSCULOSKELETAL: Negative musculoskeletal review of systems, Historian denies injury. SKIN: Negative skin review of systems, Historian denies rash, denies skin changes, denies skin lesions. NEUROLOGIC: Negative neurologic review of systems, Historian denies dizziness, denies headache. PSYCHIATRIC: Negative psychiatric review of systems, Historian denies alcohol abuse, denies drug abuse. NOTES: All systems reviewed, negative except as described above. PAST MEDICAL HISTORY MEDICAL HISTORY: Flu vaccine not up to date, Tetanus not up to date, Past medical history includes gastrointestinal disease, gastroesophageal reflux disease. (:45 KASA) MALE SURGICAL HISTORY: Surgical history of appendectomy, Notes: as a child, Surgical history of tonsillectomy, Notes: as a child. (:45 KASA) PSYCHIATRIC HISTORY: No previous psychiatric history. (:45 KASA) SOCIAL HISTORY: Patient drinks socially, rarely, Patient denies drug use, Patient currently uses tobacco, chews tobacco, daily, Patient has smoked for 30 years, Lives at home, alone, Patient has pets. (:45 KASA) NOTES: Nursing records reviewed, Agree with nursing records, Medication list reviewed, I have reviewed and agree with nursing PMH, PSH, social history, and . (03:16 ALIM) PHYSICAL EXAM (01:57 ALIM) CONSTITUTIONAL: Vital Signs Reviewed, Patient afebrile, Pulse, tachycardic, Blood pressure normal, Respiratory rate normal, Patient appears non toxic, Patient appears, in moderate pain distress, Patient alert and oriented to person, place and time, Nursing notes reviewed. HEAD: Head exam normal, Head exam included findings of head atraumatic, normocephalic. EYES: Eye exam normal, Eye exam included findings of eyelids normal to inspection, Extraocular muscles intact. ENT: ENT exam normal, Ear exam normal, Nose exam normal. NECK: Neck exam normal, Neck exam included findings of normal range of motion, Trachea midline. RESPIRATORY CHEST: Respiratory and chest exam normal, Respiratory exam included findings of, no egophony, Breath &a-1R&a+25V*p+0X*e4954S*c202B*c15G*c2P*p-0X&a-25V&a+1R Name: Felix Maradiaga JR : 1960 M55 MedRec: [id number] AcctNum: [id number] Prepared: FriMar 19, 2016 21:40 by Interface Page 12 of 19 pMD [facility] EMERGENCY RECORD sounds clear, No wheezing. CARDIOVASCULAR: Cardiovascular exam included findings of, rate tachycardic, Heart sounds normal. ABDOMEN MALE: Abdominal exam included findings of abdomen tender, periumbilical. BACK: Back exam normal, Back exam included findings of normal inspection, range of motion normal. UPPER EXTREMITY: Upper extremity exam normal, Upper extremity exam included findings of inspection normal, Range of motion normal. LOWER EXTREMITY: Lower extremity exam normal, Lower extremity exam included findings of inspection normal, Range of motion normal. NEURO: Neuro exam normal, Benton coma scale 15, Neuro exam findings include patient oriented to person, place and time, Speech normal. SKIN: Skin exam normal, Skin exam included findings of skin warm, dry, and normal in color. PSYCHIATRIC: Psychiatric exam normal, Psychiatric exam included findings of patient oriented to person place and time, Normal affect. LAB INTERPRETATION (03:16 ALIM) INTERPRETATION: I reviewed the lab results, All labs normal except as noted below, Lab results have been reviewed and are attached to this chart. EVENTS TRANSFER: Triage to Emergency Emergency Room -03. (FriMar 19, 2016 01:42 KASA) Removed from Emergency Emergency Room -03. (04:25 KASA) EKG INTERPRETATION (01:56 ALIM) 12 LEAD EKG INTERPRETATION: 12 lead EKG interpreted by Emergency Department Physician at time of study, 12 lead EKG shows normal sinus rhythm, Conduction normal, ST segments normal, T waves normal, [place] normal, Other findings include:, prolonged QTc. DOCTOR NOTES RE-EVALUATION: 55 y/o male with no significant pmh due to not seeking medical care, presenting with epigastric pain and n/v. Findings are significant for hyperglycemia, ketosis, several electrolyte abnormalities without gap (14), alkalosis (7.56), hypophosphatemia, leukocytosis, abnormal LFTs. Unable to run serum osmolality, no US available for bedside US. Cultures taken for severe sepsis criteria. 2L IV fluids, recheck glucose, iv insulin 0.1 unit/kg, then NS with 20 mEq KCL. No KPhos available to replete phos level. Awaiting CT a/p results to initiate transfer. (03:16 ALIM) CT a/p returned with reading of acute cholecystitis. Will initiate transfer to [facility] for this complex patient. (03:39 ALIM) Transfer accepted by Dr. Reich. (03:49 ALIM) CRITICAL CARE: Time spent providing critical care to patient &a-1R&a+25V*p+0X*p2798S*c202B*c15G*c2P*p-0X&a-25V&a+1R Name: Felix Maradiaga JR : 1960 M55 MedRec: [id number] AcctNum: [id number] Prepared: FriMar 19, 2016 21:40 by Interface Page 13 of 19 pMD [facility] EMERGENCY RECORD was 30-74 minutes, 35 minutes. (03:20 ALIM) ATTENDING (03:16 ALIM) ATTENDING: The documented history was done by me personally, The documented physical exam was done by me personally, The documented procedures were done by me personally, I have personally seen and examined this patient. I have fully participated in the care of this patient. I have reviewed all pertinent clinical information, including history, physical exam and plan. PROBLEM LIST No recorded problems DIAGNOSIS (03:39 ALIM) FINAL: PRIMARY: ACUTE CHOLECYSTITIS, ADDITIONAL: Abdominal Pain, Abnormal LFTs, Elevated lactic acid level, Hyperglycemia, Hypophosphatemia, Ketosis, Nausea with vomiting, Respiratory alkalosis, Sepsis, Severe volume depletion. DISPOSITION PATIENT: Disposition Type: Transfer, Disposition: Transfer to [facility]. (03:50 ALIM) Patient left the department. (04:25 KASA) PRESCRIPTION No recorded prescriptions IMAGING *EKG: Image captured from scanner. (02:09 [facility]) *MEMORANDUM OF TRANSFER: Image captured from scanner. (03:57 ABWA) CONSENTS: Image captured from scanner. (03:57 ABWA) RADIOLOGY REPORT: Image captured from scanner. (04:20 KASA) Page 2 added. Image captured from scanner. (04:20 KASA) *SUPPLY CHARGE SHEET: Image captured from scanner. (04:20 KASA) ADMIN (21:29 ALIM) DIGITAL SIGNATURE: MD Mcintosh Arthur. RESULTS RADIOLOGY: CT Abdomen Pelvis W Con Observe DT: FriMar 19, 2016 01:52, ABDPELV PRELIMINARY REPORT/[facility]/EMERGENCY AFTER HOURS PROCEDURE: \H\EXAM: \N\CT Abdomen and Pelvis With Intravenous Contrast. \H\CLINICAL HISTORY: &a-1R&a+25V*p+0X*v9793X*c202B*c15G*c2P*p-0X&a-25V&a+1R Name: Felix Maradiaga JR : 1960 M55 MedRec: [id number] AcctNum: [id number] Prepared: FriMar 19, 2016 21:40 by Interface Page 14 of 19 pMD [facility] EMERGENCY RECORD \N\55 years old, male; Pain; Abdominal pain; Periumbilical; Prior surgery; Surgery date: 6+ months; Surgery type: Appendectomy (age 10); Patient HX: 55 y/o male with no significant medical history, pre senting with 5 hours of periumbilical area, with n/v x 4. No fever, diarrhea, or constipation. No ot her recent illnesses. Last bm yesterday, normal. ; Additional info: Egfr 70; HX of gastroesophageal reflux disease \T\ appendectomy (age 10); Elevated wbc (21.9) \H\ TECHNIQUE: \N\Axial computed tomography images of the abdomen and pelvis with intravenous contrast. Coronal and sagittal reformatted images were created and reviewed. \H\ CONTRAST: \N\96 mL of ISOVUE 370 administered intravenously. \H\COMPARISON: \N\No relevant prior studies available. \H\ FINDINGS: \N\Lower thorax: Small hiatal hernia. ABDOMEN: Liver: Unremarkable. No mass. Gallbladder and bile ducts: Gallbladder is distended and demonstrates diffuse inflammatory wall thic kening, consistent with acute cholecystitis. No visible cholelithiasis. No biliary ductal dilatation . Pancreas: Unremarkable. No mass. No ductal dilation. Spleen: Unremarkable. No splenomegaly. Adrenals: Unremarkable. No mass. Kidneys and ureters: Unremarkable. No solid mass. No hydronephrosis. Stomach and bowel: Unremarkable. No obstruction. No mucosal thickening. Appendix: Appendix not visualized. No evidence of appendicitis. PELVIS: Bladder: Unremarkable. No mass. Reproductive: Unremarkable as visualized. \H\ \N\ABDOMEN and PELVIS: Intraperitoneal space: Mildly increased attenuation of the mesentery near its root with pseudocapsule and small associated mesenteric lymph nodes, consistent with mesenteric panniculitis. No free air. No significant fluid collection. Bones: No acute fracture. &a-1R&a+25V*p+0X*r6811I*c202B*c15G*c2P*p-0X&a-25V&a+1R Name: Felix Maradiaga JR : 1960 M55 MedRec: [id number] AcctNum: [id number] Prepared: FriMar 19, 2016 21:40 by Interface Page 15 of 19 pMD [facility] EMERGENCY RECORD Soft tissues: Unremarkable. Vasculature: Unremarkable. No abdominal aortic aneurysm. Lymph nodes: See above. \H\ IMPRESSION: \N\1. Acute cholecystitis. 2. Mesenteric panniculitis. Thank you for allowing us to participate in the care of your patient. Dictated and Authenticated by: Siddharth Saldivar MD 03/19/2016 3:27 AM Central Time ([place] \[place]\ [place]) FINAL REPORT CT ABDOMEN AND PELVIS WITH CONTRAST: Multiple axial tomograms obtained through the abdomen and pelvis with IV enhancement. FINDINGS: The gallbladder is distended. There is gallbladder wall thickening. There is pericholecystic hazin ess suggesting inflammation. The findings are consistent with acute cholecystitis, and I am in agre ement with the preliminary report. Code QA. POS: HARDIK . (21:28 ALIM) XR Chest 1 View Portable Observe DT: FriMar 19, 2016 01:52, CXRP PORTABLE CHEST: Date: 03/19/16 HISTORY: Epigastric pain. FINDINGS: The lung titus are clear. No infiltrate seen. Heart and mediastinum appear unremarkable. IMPRESSION: No acute process identified. POS: GEOVANY . (21:28 ALIM) &a-1R&a+25V*p+0X*z9592K*c202B*c15G*c2P*p-0X&a-25V&a+1R Name: Felix Maradiaga JR : 1960 M55 MedRec: [id number] AcctNum: [id number] Prepared: FriMar 19, 2016 21:40 by Interface Page 16 of 19 pMD [facility] EMERGENCY RECORD LABORATORY: CBC with Differential Collection DT: FriMar 19, 2016 01:59, *White Blood Cell (WBC) Count 21.9 - H thou/uL, Range (4.8-10.8), Red Blood Cell (RBC) Count 5.41 mill/uL, Range (4.70-6.10), Hemoglobin 15.3 g/dL, Range (14.0-18.0), Hematocrit 45.3 %, Range (42.0-52.0), Mean Corpuscular Volume 83.8 fl, Range (80.0-94.0), Mean Corpuscular Hemoglobin 28.4 pg, Range (27.0-31.0), Mean Corpuscular HGB CONC 33.9 g/dL, Range (32.0-36.0), RBC Distribution Width 11.6 %, Range (11.5-14.5), Platelet Count 391 thou/uL, Range (130-400), *Mean Platelet Volume 7.2 - L fL, Range (7.4-10.4), *Neutrophil 82 - H %, Range (42-75), Band 7 %, Range (5-11), *Lymphocytes 7 - L %, Range (21-51), Monocytes 4 %, Range (0-10), PLT Morphology Comment Appears Adequate , RBC Morphology Normal . (02:11 ALIM) Lipase Collection DT: FriMar 19, 2016 01:59, Lipase 25 U/L, Range (8-78). (02:22 ALIM) Comprehensive Metabolic Panel Collection DT: FriMar 19, 2016 01:59, *Sodium 132 - L mmol/L, Range (136-145), Potassium 4.0 mmol/L, Range (3.5-5.1), *Chloride 97 - L mmol/L, Range (98-107), *Carbon Dioxide 19 - L mmol/L, Range (22-29), Anion Gap 20 mmol/L, Range (10-20), BUN (Urea Nitrogen) 13 mg/dL, Range (8.4-25.7), Creatinine 1.09 mg/dL, Range (0.7-1.3), Estimated GFR-MDRD 70 , Reference Range for Estimated GFR: Greater than 90, mL/min/1.73 m2 NOTE: The MDRD equation has not been validated for use, with the elderly (over 70 years of age), women, patients with, serious comorbid condition or persons with extremes of body size, muscle, mass, or nutritional status. , *Glucose 472 - H mg/dL, Range (70-105), Calcium 9.3 mg/dL, Range (7.8-10.44), *Bilirubin, Total 1.8 - H mg/dL, Range (0.2-1.2), Protein, Total 7.9 g/dL, Range (6.0-8.3), NOTE: Plasma values are generally 0.3 to 0.5 g/dL higher than serum values, due to the presence of fibrinogen. , Albumin 3.5 g/dL, Range (3.5-5.0), *Globulin 4.4 - H g/dL, Range (2.4-3.5), *Alb/Glob Ratio 0.8 - L g/dL, Range (1.2-2.2), *Alkaline Phosphatase 301 - H U/L, Range (40-150), *AST (SGOT) 209 - H U/L, Range (5-34), *ALT (SGPT) 217 - H U/L, Range (0-55). (02:22 ALIM) &a-1R&a+25V*p+0X*w4693X*c202B*c15G*c2P*p-0X&a-25V&a+1R Name: Felix Maradiaga JR : 1960 M55 MedRec: [id number] AcctNum: [id number] Prepared: FriMar 19, 2016 21:40 by Interface Page 17 of 19 pMD [facility] EMERGENCY RECORD Blood Gas-Venous Collection DT: FriMar 19, 2016 02:20, *pH (venous) 7.560 - *H , Range (7.34-7.37), Results called to, and verbally verified through read-back by: JASMIN PARSONS AT 0226 @ENTER PERSON CALLED IN THE BRACKETS. by: Carlton Zamora on 03/19/16 at 0225., *CO2 Tension (PvCO2) 24.0 - L mmHg, Range (41.0-51.0), O2 Tension (PvO2) 36.0 mmHg, Range (35.0-45.0), *Actual Bicarbonate (HCO3v) 21 - L mEq/L, Range (22-26), Base Excess 0.5 mEq/L, Range (0 (+/- 2.5)), O2 Saturation-measured venous 74.0 %, Range (70.0-80.0), Hemoglobin (Hb) 15.2 g/dL, Range (13.1-17.2). (02:33 ALIM) Cardiac Profile w/CKMB & TropI Collection DT: FriMar 19, 2016 01:59, CKMB 1.1 ng/mL, Range (0-6.6), Troponin I Less than 0.010 ng/mL, Range (< 0.028), Reference Range , 0.00 - 0.028 ng/mL Negative 0.029 - 0.29 ng/mL , Indeterminate Greater or Equal to 0.3 ng/mL Strongly suggests [place] , . (02:33 ALIM) Alcohol Collection DT: FriMar 19, 2016 02:32, Alcohol Less than 10 mg/dL, Range (Less than 10), The pharmacological response to blood alcohol levels may vary from, individual to individual. Negative: Less than 10, mg/dL Toxic: 50 - 100 mg/dL , Depression of [employer]OR PASTRY: Greater than 100 mg/dL , Fatalities reported: Greater than 400 mg/dL . (02:43 ALIM) Lactic Acid for Sepsis Collection DT: FriMar 19, 2016 02:20, Critical Call Chem-Lactate CALLED BERNARDO.S AT , 0248 , *Lactic Acid - Sepsis 4.6 - *H mmol/L, Range (0.5-2.2), Critical value!. (02:50 ALIM) Beta-Hydroxybutyrate (Ketone) Collection DT: FriMar 19, 2016 02:44, *Beta-Hydroxybutyrate (Ketone) 1.28 - H mmol/L, Range (0.02-0.27). (03:01 ALIM) Magnesium Collection DT: FriMar 19, 2016 02:44, Magnesium 1.7 mg/dL, Range (1.6-2.6). (03:05 ALIM) CK (CPK) Collection DT: FriMar 19, 2016 02:44, CK (CPK) 63 U/L, Range (30-200). (03:05 ALIM) Magnesium Collection DT: FriMar 19, 2016 02:44, Magnesium 1.7 mg/dL, Range (1.6-2.6). (03:11 ALIM) &a-1R&a+25V*p+0X*h2806K*c202B*c15G*c2P*p-0X&a-25V&a+1R Name: Felix Maradiaga JR : 1960 M55 MedRec: [id number] AcctNum: [id number] Prepared: FriMar 19, 2016 21:40 by Interface Page 18 of 19 pMD [facility] EMERGENCY RECORD Phosphorus Collection DT: FriMar 19, 2016 02:44, *Phosphorus 1.1 - *L mg/dL, Range (2.3-4.7), Critical value! This is a CRITICAL VALUE Results called to: [] , Results called and verbally verified through read-back. by AUTOINS AUTOINS, on 03/19/16 at 0311. . (03:11 ALIM) CK (CPK) Collection DT: FriMar 19, 2016 02:44, CK (CPK) 63 U/L, Range (30-200). (03:11 ALIM) Accuchek Collection DT: FriMar 19, 2016 03:23, *Accuchek 397 - H mg/dL, Range (70-110). (03:39 ALIM) Oquendo: DEMETRI=EDI Perdue, Dianna HARDING=MD Arnaldo, Obed WAGNER=EDI Guadalupe, Dalila ARTEAGA=EDI Will, Marychuy &a-1R&a+25V*p+0X*w8974Y*c202B*c15G*c2P*p-0X&a-25V&a+1R Name: Felix Maradiaga JR : 1960 M55 MedRec: [id number] AcctNum: [id number] Prepared: FriMar 19, 2016 21:40 by Interface Page 19 of 19 pMD MTDD
--- NOTE | 2016-03-19 07:59 | RAD ---
PORTABLE CHEST: Date: 03/19/16 HISTORY: Epigastric pain. FINDINGS: The lung titus are clear. No infiltrate seen. Heart and mediastinum appear unremarkable. IMPRESSION: No acute process identified. POS: [facility]
--- NOTE | 2016-03-19 08:05 | CT ---
PRELIMINARY REPORT/[facility]/EMERGENCY AFTER HOURS PROCEDURE: \H\EXAM: \N\CT Abdomen and Pelvis With Intravenous Contrast. \H\CLINICAL HISTORY: \N\55 years old, male; Pain; Abdominal pain; Periumbilical; Prior surgery; Surgery date: 6+ months; Surgery type: Appendectomy (age 10); Patient HX: 55 y/o male with no significant medical history, pre senting with 5 hours of periumbilical area, with n/v x 4. No fever, diarrhea, or constipation. No ot her recent illnesses. Last bm yesterday, normal. ; Additional info: Egfr 70; HX of gastroesophageal reflux disease \T\ appendectomy (age 10); Elevated wbc (21.9) \H\ TECHNIQUE: \N\Axial computed tomography images of the abdomen and pelvis with intravenous contrast. Coronal and sagittal reformatted images were created and reviewed. \H\ CONTRAST: \N\96 mL of ISOVUE 370 administered intravenously. \H\COMPARISON: \N\No relevant prior studies available. \H\ FINDINGS: \N\Lower thorax: Small hiatal hernia. ABDOMEN: Liver: Unremarkable. No mass. Gallbladder and bile ducts: Gallbladder is distended and demonstrates diffuse inflammatory wall thic kening, consistent with acute cholecystitis. No visible cholelithiasis. No biliary ductal dilatation . Pancreas: Unremarkable. No mass. No ductal dilation. Spleen: Unremarkable. No splenomegaly. Adrenals: Unremarkable. No mass. Kidneys and ureters: Unremarkable. No solid mass. No hydronephrosis. Stomach and bowel: Unremarkable. No obstruction. No mucosal thickening. Appendix: Appendix not visualized. No evidence of appendicitis. PELVIS: Bladder: Unremarkable. No mass. Reproductive: Unremarkable as visualized. \H\ \N\ABDOMEN and PELVIS: Intraperitoneal space: Mildly increased attenuation of the mesentery near its root with pseudocapsule and small associated mesenteric lymph nodes, consistent with mesenteric panniculitis. No free air. No significant fluid collection. Bones: No acute fracture. Soft tissues: Unremarkable. Vasculature: Unremarkable. No abdominal aortic aneurysm. Lymph nodes: See above. \H\ IMPRESSION: \N\1. Acute cholecystitis. 2. Mesenteric panniculitis. Thank you for allowing us to participate in the care of your patient. Dictated and Authenticated by: Siddharth Saldivar MD 03/19/2016 3:27 AM Central Time ([place] \T\ [place]) FINAL REPORT CT ABDOMEN AND PELVIS WITH CONTRAST: Multiple axial tomograms obtained through the abdomen and pelvis with IV enhancement. FINDINGS: The gallbladder is distended. There is gallbladder wall thickening. There is pericholecystic hazin ess suggesting inflammation. The findings are consistent with acute cholecystitis, and I am in agre ement with the preliminary report. Code QA. POS: GE[facility]
[2016-03-19] MEDS ORDERED: Iopamidol 370 76% 100 ML VIAL ONE (09:00)
== END 2016-03-19 04:20 | disposition short-term general hospital (02) ==
LOC: NAV ERS 01:39
DX: K81.0 Acute cholecystitis (principal); E83.39 Other disorders of phosphorus metabolism; R73.9 Hyperglycemia, unspecified; F17.220 Nicotine dependence, chewing tobacco, uncomplicated; A41.9 Sepsis, unspecified organism; K21.9 Gastro-esophageal reflux disease without esophagitis
CPT/HCPCS: 36415; 36416; 71010; 74177; 80053; 80307; 82010; 82553; 82805; 83605; 83690; 83735; 84100; 84484; 85025; 87040; 87077; 87149; 87186; 93005; 96361; 96365; 96375; G0479; J0696; J2270; J2405; J7050

== ENCOUNTER 2024-02-06 14:55 | Outpatient (CLI) | payer SELFPAY | END 2024-02-06 14:56 | disposition home or self-care (01) | LOC: NAV RAD 14:55 | PROVIDERS: ATTEND Family Medicine | DX: S69.91XA Unspecified injury of right wrist, hand and finger(s), initial encounter (principal) ==